=== PATIENT | male | born 1995 | race Caucasian/White ===

== ENCOUNTER 2017-11-11 19:10 | Emergency (ER) | payer OTHER ==
[2017-11-11] MEDS ORDERED: ONDANSETRON 4 MG/2 ML VIAL ONE (19:37)
[2017-11-11] MEDS ORDERED: ONDANSETRON 4 MG/2 ML VIAL IVP ONE (19:38)
[2017-11-11] MEDS ORDERED: NS 1,000 ML IV ONE (19:38)
--- NOTE | 2017-11-11 19:41 | EDPHY ---
H & P Stated Complaint: drank 13 xhots of captain herron today Time Seen by Provider: 11/11/17 19:39 HPI/ROS: HPI: This is a 22-year-old male who presents with Chief Complaint: drank 13 shots of captain herron today Location: body Quality: Intoxication Duration: Today Signs and Symptoms: no fever, no nausea, no vomiting, no hematemesis, no blood in stool, no abdominal bloating, no diarrhea, no back pain, no urinary symptoms , no testicular/groin pain, no indigestion, no chest pain, no shortness of breath Timing: Acute Severity: Moderate Context: Patient is a local [employer] [facility] student who presents via police for acute alcohol intoxication. He admits to drinking 13 shots of Captain Herron today. He reports feeling nauseous and needing to vomit. He denies any homicidal ideation, suicidal ideation. Modifying Factors: None Comment: ROS: Limited due to intoxication MEDICAL/SURGICAL/SOCIAL HISTORY: Medical history: Generally healthy. Does not take any regular medications. Surgical history: Denies Social history: Student CONSTITUTIONAL: Clearly intoxicated young adult white male, awake and alert, no obvious distress HEENT: Atraumatic and normocephalic, PERRL, EOMI. Tympanic membranes clear. Oropharynx clear, no exudate and moist pink mucosa. Airway patent. No lymphadenopathy. No meningismus. Cardiovascular: Normal S1/S2, regular rate, regular rhythm, without murmur rub or gallop. PULMONARY/CHEST: Symmetrical and nontender. Clear to auscultation bilaterally. Good air movement. No accessory muscle usage. ABDOMEN: Soft, nondistended, nontender, no rebound, no guarding, no peritoneal signs, no masses or organomegaly. No CVAT. EXTREMITIES: 2/2 pulses, strength 5/5, no deformities, no clubbing, no cyanosis or edema. NEUROLOGICAL: no focal neuro deficits. GCS 15. SKIN: Warm and dry, no erythema. no rash. Good capillary refill. Source: Police, RN/MD Exam Limitations: Intoxication - Personal History Current Tetanus Diphtheria and Acellular Pertussis (TDAP): Yes Tetanus Vaccine Date: < 10 years - Medical/Surgical History Hx Asthma: No Hx Chronic Respiratory Disease: No Hx Diabetes: No Hx Cardiac Disease: No Hx Renal Disease: No Hx Cirrhosis: No Hx Alcoholism: No Hx HIV/AIDS: No Hx Splenectomy or Spleen Trauma: No Other PMH: denies - Social History Smoking Status: Never smoked Constitutional: Initial Vital Signs Temperature (C) 36.3 C 11/11/17 19:14 Heart Rate 84 11/11/17 19:14 Respiratory Rate 16 11/11/17 19:14 Blood Pressure 114/80 11/11/17 19:14 O2 Sat (%) 95 11/11/17 19:14 O2 Delivery Mode Room Air Allergies/Adverse Reactions: No Known Allergies Allergy (Unverified 11/11/17 19:17) Home Medications: Medication Instructions Recorded NK [No Known Home Meds] 11/11/17 Medical Decision Making ED Course/Re-evaluation: 1939: Labs, serum ethanol, 1 L normal saline and IV Zofran ordered. Patient is protecting his airway upon arrival and no signs of respiratory depression. Vital signs reviewed and stable. Does not meet M1 criteria or Detainer. Plan is to keep patient until more sober, re-evaluate and if able to walk without ataxia; discharged to the [facility] 2214: Reassessed patient. AAOx4. denies SI/HI. no ataxia. discharge to [facility]. This patient was seen under the supervision of my primary supervising physician. I evaluated care for this patient independently. Differential Diagnosis: Differential diagnosis includes but is not limited to alcohol intoxication, alcoholic gastritis, dehydration, gastroenteritis. - Data Points Laboratory Results: Laboratory Results 11/11/17 20:00 11/11/17 20:00 11/11/17 11/11/17 20:00 20:00 WBC 16.15 10^3/uL H 10^3/uL (3.80-9.50) RBC 5.19 10^6/uL 10^6/uL (4.40-6.38) Hgb 16.0 g/dL g/dL (13.7-17.5) Hct 47.0 % % (40.0-51.0) MCV 90.6 fL fL (81.5-99.8) MCH 30.8 pg pg (27.9-34.1) MCHC 34.0 g/dL g/dL (32.4-36.7) RDW 12.8 % % (11.5-15.2) Plt Count 277 10^3/uL 10^3/uL (150-400) MPV 11.9 fL H fL (8.7-11.7) Neut % (Auto) 36.6 % L % (39.3-74.2) Lymph % (Auto) 53.3 % H % (15.0-45.0) [place] % (Auto) 7.1 % % (4.5-13.0) Eos % (Auto) 2.0 % % (0.6-7.6) Baso % (Auto) 0.7 % % (0.3-1.7) Nucleat RBC Rel Count 0.0 % % (0.0-0.2) Absolute Neuts (auto) 5.92 10^3/uL 10^3/uL (1.70-6.50) Absolute Lymphs (auto) 8.60 10^3/uL H 10^3/uL (1.00-3.00) Absolute Monos (auto) 1.14 10^3/uL H 10^3/uL (0.30-0.80) Absolute Eos (auto) 0.33 10^3/uL 10^3/uL (0.03-0.40) Absolute Basos (auto) 0.11 10^3/uL H 10^3/uL (0.02-0.10) Absolute Nucleated RBC 0.00 10^3/uL 10^3/uL (0-0.01) Immature Gran % 0.3 % % (0.0-1.1) Immature Gran # 0.05 10^3/uL 10^3/uL (0.00-0.10) Sodium 146 mEq/L H mEq/L (135-145) Potassium 4.1 mEq/L mEq/L (3.5-5.2) Chloride 105 mEq/L mEq/L (97-110) Carbon Dioxide 21 mEq/l L mEq/l (22-31) Anion Gap 20 mEq/L H mEq/L (8-16) BUN 14 mg/dL mg/dL (7-23) Creatinine 1.0 mg/dL mg/dL (0.7-1.3) Estimated GFR > 60 Glucose 113 mg/dL H mg/dL (70-100) Calcium 9.5 mg/dL mg/dL (8.5-10.4) Ethyl Alcohol 249 mg/dL H mg/dL (0-10) Medications Given: Discontinued Medications Sodium Chloride (Ns) 1,000 mls @ 0 mls/hr IV EDNOW ONE; Wide Open PRN Reason: Protocol Stop: 11/11/17 19:39 Last Admin: 11/11/17 19:51 Dose: 1,000 mls Ondansetron HCl (Zofran) 4 mg IVP EDNOW ONE Stop: 11/11/17 19:39 Last Admin: 11/11/17 19:51 Dose: 4 mg Departure - Departure Disposition: Other Psych, Not [facility] Condition: Good Instructions: Alcohol Intoxication (ED), Abuse of Alcohol (ED) Additional Instructions: Please refrain from drinking excessive amounts of alcohol. Referrals: [facility] [Outside] - As per Instructions
[2017-11-11 20:09] LABS: PLATELET COUNT 277 10^3/uL (150-400)
[2017-11-11 22:50] VITALS: BP 119/70
== END 2017-11-11 22:49 ==
DX: F10.121 Alcohol abuse with intoxication delirium (principal); E86.9 Volume depletion, unspecified
CPT/HCPCS: 96374; G0480; J2405